=== PATIENT | female | born 1965 | race Caucasian/White ===

== ENCOUNTER → 2024-03-22 08:37 | Outpatient (REF) | payer OTHER, SELFPAY | LOC: WDC 08:37 | PROVIDERS: ATTENDING PHYSICIAN Obstetrics & Gynecology Gynecology; FAMILY PHYSICIAN Internal Medicine | DX: Z12.31 Encounter for screening mammogram for malignant neoplasm of breast (principal) | CPT/HCPCS: 77063; 77067 ==

== ENCOUNTER 2025-02-14 12:33 | Inpatient (IN) | payer OTHER, SELFPAY ==
[2025-02-14] VITALS (16 sets, daily range): BP systolic 104–127; BP diastolic 70–89; BMI 33.8; BMI 33.2
--- NOTE | 2025-02-14 08:35 | ED.GENMED ---
ED Provider Triage
<Osiel Ramires MD, Resident - Last Filed: 02/14/25 11:22>
-
Patient seen by provider in Triage?: Seen in Triage
History of Present Illness
<Osiel Ramires MD, Resident - Last Filed: 02/14/25 11:22>
General
Chief Complaint: Abdominal Symptoms
Source: patient
Exam Limitations: none
Time Seen by Provider: 02/14/25 07:57
History of Present Illness
History of Present Illness:
59 y/o F presents with dry cough, sore throat, and weakness since Thursday afternoon associated with nausea and 2 episodes of non bloody vomiting. Onset was sudden and has course has been constant. No fever, chills, weight loss, SOB, chest pain, ear
pain/fullness, nasal congestion, rhinorrhea. No recent exposure to sick contacts or recent travel. Shes on weight loss drug.
Past History
<Osiel Ramires MD, Resident - Last Filed: 02/14/25 11:22>
Past History
ED Past Medical History: Other (thigh pain, enlargement of lymph nodes)
ED Past Surgical History: None
Social History
Tobacco: Former smoker
Alcohol: Occasional
Drug: None
Personal:
Living: with family
Review of Systems
<Osiel Ramires MD, Resident - Last Filed: 02/14/25 11:22>
Review of Systems
All Other Systems: ROS reviewed and negative except as documented in HPI and ROS
Phy Exam
<Osiel Ramires MD, Resident - Last Filed: 02/14/25 11:22>
General Physical Exam
General Presentation: well appearing and no apparent distress
General Skin: warm and dry
General Mental: alert
ENT Exam
ENT Exam: EOMI and pharynx normal
Cardiovascular Exam
Cardiovascular Exam: regular rate/rhythm, no edema, no gallop, no JVD, no murmur and normal peripheral pulses
Pulmonary Exam
Pulmonary Exam: lungs clear and no respiratory distress
Gastrointestinal Exam
Gastrointestinal Exam: normal bowel sounds, non tender and soft
Neurological Exam
Neurological Exam: alert, oriented x3, no motor deficits, normal reflexs and speech normal
Musculoskeletal Exam
Musculoskeletal Exam: full ROM and no edema
Skin Exam
Skin Exam: normal color, warm/dry and no rash
Psychiatric Exam
Psychiatric Exam: normal mood/affect
Course
<Osiel Ramires MD, Resident - Last Filed: 02/14/25 11:22>
Orders/Labs/Results
Orders:
Orders
02/14/25 08:01
Ondansetron HCl [Zofran] 4 mg PO Q8HPRN PRN
02/14/25 08:02
Ketorolac [Toradol] 15 mg IV NOW STA
02/14/25 08:03
Ondansetron Injectable [Zofran] 4 mg IV Q6HPRN PRN
02/14/25 08:35
Chest [CR Chest - 2 Views ] Urgent
Comment:
Reason For Exam: chest pain
02/14/25 08:39
EKG [Electrocardiogram (*1)] Urgent
Reason for Study: Fatigue / Weakness
Ondansetron Injectable [Zofran] 4 mg IV NOW STA
02/14/25 08:40
EKG- Treatment ONCE
02/14/25 08:45
0.9% Sodium Chloride 1000 ml [Nss] 1,000 ml IV Per Protocol mls/hr
02/14/25 09:03
Add On- LAB Urgent
Tests Added?: TSH
02/14/25 09:17
Ketorolac [Toradol] 30 mg .ROUTE .ST-MED ONE
09/30/25 09:21
CBC/With Diff [Complete Blood Count/With Diff] Urgent
CMP [Comprehensive Metabolic Panel] Urgent
COVID-19 Antigen Urgent
Source: Nasal Swab
Glycohemoglobin (HgbA1c) Urgent
LDL Cholesterol, Direct Urgent
Comment: ADD ON
Lipase Urgent
TSH Urgent
Comment: ADD ON
Influenza A+B Rapid Molecular Urgent
COSTA Source: Nasal Swab
Specimen Description:
02/14/25 10:18
PTT Urgent
Prothrombin Time Urgent
Troponin I Urgent
02/14/25 10:26
Echo 2D MMode Color/Doppler Stat
Reason for Study: stemi
Heparin 1000 Units/500 ml [Heparin] 1,000 units in 500 ml .ROUTE .STK-MED
Heparin Sodium,Porcine/Ns/Pf [Heparin 2000 Units/1000 ml] 2,000 unit in 1,000 ml .ROUTE .STK-MED
Lidocaine HCl/Pf [Xylocaine-Mpf 1% Vial] 100 mg .ROUTE .STK-MED ONE
Nitroglycerin [Tridil] 1,500 mcg .ROUTE .STK-MED ONE
Verapamil Injectable [Isoptin/Verapamil Injection] 5 mg .ROUTE .STK-MED ONE
02/14/25 10:45
Ticagrelor [Brilinta] 180 mg PO ONCE ONE
02/14/25 10:48
Add On- LAB Routine
Tests Added?: Hgba1c
02/14/25 11:09
CARDIOLOGY CONSULT Routine
Consulting Provider: Anthony Kay
Was physician already notified: Yes
02/14/25 11:25
Add On- LAB Routine
Tests Added?: LDL
Admit/Transfer Patient As Directed
Co-Sign Provider:
Level of Care: Inpatient admission
Assign to:: IVU
Physician / Group: [facility]/hospitalist
Diagnosis: ACS/ COVID
Reason for Hospitalization: ACS/COVID
Expected length of stay greater than two midnights?: Yes
ELOS- Estimated Length of Stay in days: 3
I certify the patient meets the requirements for IP care: Yes
02/14/25 11:26
PRN Pain Medication Management As Directed
May give lesser potent ordered pain med per pt: Yes
preference::
Protocol:: Medication orders for pain may be administered in a
manner that supports deferring to patient preference
when the pt is:
- Requesting an ordered lesser potent pain medication.
Least to most potent pain medications are defined
as: acetaminophen < NSAID < tramadol < opioids
(morphine, oxycodone, hydromorphone).
- Requesting a lesser dose of the same medication IF
ORDERED.
- Requesting a less intrusive route of administration
if both routes are prescribed by the provider (PO <
IV).
02/14/25 11:27
Code Status As Directed
Resuscitation Status: Full Code
02/14/25 11:48
Heparin Protocol- PTT Orders As Directed
PTT per Heparin protocol: -Obtain CBC and baseline PTT - if not already collected.
-Obtain PTT 6 hours from start of infusion. Then, every 6 hours until 2 consecutive
PTT's are therapeutic. Then, PTT Daily.
-With each rate change, obtain PTT every 6 hours until 2 consecutive PTT's are
therapeutic. Then, PTT Daily.
Notify MD As Directed
Notify physician if: PTT is greater than or equal to 200.
02/14/25 12:00
Heparin 50379 Units/250 ml 25,000 units in 250 ml IV PER PROTOCOL
Weight to be used for heparin protocol in kilograms (kg):: 89.2
Protocol:: Cardiac Tx/Acute Coronary
PTT Goal Range to be used:: PTT 73 to 111 seconds
Order type:: Initial
INITIAL Infusion Dose (UNITS/KG/hr) & then follow protocol:: 12 units/kg/hr
Infusion Dose in UNITS/hr & then follow protocol (UNITS/hr):: 1,000
INFUSION RATE in mL/hr & then follow protocol (mL/hr):: 10
PTT less than or equal to 64 seconds:: Increase rate by 200 units/hr (+ 2 mL/hr)
PTT 64.1 to 72.9 seconds:: Increase rate by 100 units/hr (+ 1 mL/hr)
PTT 73 to 111 seconds:: Target Range. No change in rate.
PTT 111.1 to 130.9 seconds:: Decrease rate by 100 units/hr (- 1 mL/hr)
PTT 131 to 199.9 seconds:: HOLD for 1 hr. Then decrease rate by 200 units/hr (- 2 mL/hr)
PTT greater than or equal to 200 seconds:: HOLD for 2 hrs & Notify Provider. Then decrease by 200 units/hr (-
2 mL/hr)
Lab follow-up:: Each change, PTT q6h until 2 consecutive are therapeutic. Then PTT
daily.
02/14/25 13:00
EKG [Electrocardiogram (*1)] Routine
Reason for Study: Abnormal EKG
02/14/25 13:49
Complete Blood Count/No Diff Urgent
Comment: Obtain baseline before beginning heparin infusion if not already collected
PTT Urgent
Comment: Obtain baseline before beginning heparin infusion if not already collected
Procalcitonin Routine
If negative, will antibiotics be d/c'd or not started: Yes
Does the patient have renal or hepatic impairment?: No
Any recent (w/in 48 hrs) physiologic stress (CPR, rhabdo): No
02/14/25 18:00
Troponin I Q3H
Comment: at admit & Q3H for 3 total including ED draws, obtain ECG with each level
02/14/25 21:00
Troponin I Q3H
Comment: at admit & Q3H for 3 total including ED draws, obtain ECG with each level
02/15/25 00:00
Troponin I Q3H
Comment: at admit & Q3H for 3 total including ED draws, obtain ECG with each level
Abnormal Lab Results
02/14/25 02/14/25
09:21 10:18
WBC 14.0 H 10^3/uL
(4.8-10.8)
RDW 15.5 H %
(11.5-14.5)
Abs Immat Gran (auto) 0.1 H 10^3/uL
(0-0.05)
Absolute Neuts (auto) 12.0 H 10^3/uL
(1.4-6.5)
Absolute Lymphs (auto) 0.7 L 10^3/uL
(1.2-3.4)
Absolute Monos (auto) 1.3 H 10^3/uL
(0.1-0.6)
Neutrophils % 85.1 H %
(42.2-75.2)
Lymphocytes % 5.1 L %
(20.5-51.1)
PT 15.2 H Sec
(11.4-14.6)
Glucose 104 H mg/dl
(70-99)
AST 351 H U/L
(14-36)
ALT 53 H U/L
(0-35)
Troponin I 29.700 H* ng/ml
SARS-CoV-2 Antigen Positive A
(Negative)
02/14/25 09:21
02/14/25 09:21
Vital Signs
Initial and Last Documented VS:
Initial Vital Signs
Temp Pulse Resp BP Pulse Ox
98.6 F 52 18 104/70 97
02/14/25 07:52 02/14/25 07:52 02/14/25 07:52 02/14/25 07:52 02/14/25 07:52
Last Documented Vital Signs
Temp Pulse Resp BP Pulse Ox
97.2 F 82 16 125/76 97
02/14/25 11:15 02/14/25 14:12 02/14/25 14:12 02/14/25 14:12 02/14/25 14:12
<Gabe Up MD - Last Filed: 02/14/25 15:02>
Orders/Labs/Results
Orders:
Orders
02/14/25 08:01
Ondansetron HCl [Zofran] 4 mg PO Q8HPRN PRN
02/14/25 08:02
Ketorolac [Toradol] 15 mg IV NOW STA
02/14/25 08:03
Ondansetron Injectable [Zofran] 4 mg IV Q6HPRN PRN
02/14/25 08:35
Chest [CR Chest - 2 Views ] Urgent
Comment:
Reason For Exam: chest pain
02/14/25 08:39
EKG [Electrocardiogram (*1)] Urgent
Reason for Study: Fatigue / Weakness
Ondansetron Injectable [Zofran] 4 mg IV NOW STA
02/14/25 08:40
EKG- Treatment ONCE
02/14/25 08:45
0.9% Sodium Chloride 1000 ml [Nss] 1,000 ml IV Per Protocol mls/hr
02/14/25 09:03
Add On- LAB Urgent
Tests Added?: TSH
02/14/25 09:17
Ketorolac [Toradol] 30 mg .ROUTE .STK-MED ONE
02/14/25 09:21
CBC/With Diff [Complete Blood Count/With Diff] Urgent
CMP [Comprehensive Metabolic Panel] Urgent
COVID-19 Antigen Urgent
Source: Nasal Swab
Glycohemoglobin (HgbA1c) Urgent
LDL Cholesterol, Direct Urgent
Comment: ADD ON
Lipase Urgent
TSH Urgent
Comment: ADD ON
Influenza A+B Rapid Molecular Urgent
COSTA Source: Nasal Swab
Specimen Description:
02/14/25 10:18
PTT Urgent
Prothrombin Time Urgent
Troponin I Urgent
02/14/25 10:26
Echo 2D MMode Color/Doppler Stat
Reason for Study: stemi
Heparin 1000 Units/500 ml [Heparin] 1,000 units in 500 ml .ROUTE .STK-MED
Heparin Sodium,Porcine/Ns/Pf [Heparin 2000 Units/1000 ml] 2,000 unit in 1,000 ml .ROUTE .STK-MED
Lidocaine HCl/Pf [Xylocaine-Mpf 1% Vial] 100 mg .ROUTE .STK-MED ONE
Nitroglycerin [Tridil] 1,500 mcg .ROUTE .STK-MED ONE
Verapamil Injectable [Isoptin/Verapamil Injection] 5 mg .ROUTE .STK-MED ONE
02/14/25 10:45
Ticagrelor [Brilinta] 180 mg PO ONCE ONE
02/14/25 10:48
Add On- LAB Routine
Tests Added?: Hgba1c
02/14/25 11:09
CARDIOLOGY CONSULT Routine
Consulting Provider: Anthony Kay
Was physician already notified: Yes
02/14/25 11:25
Add On- LAB Routine
Tests Added?: LDL
Admit/Transfer Patient As Directed
Co-Sign Provider:
Level of Care: Inpatient admission
Assign to:: IVU
Physician / Group: [facility]/hospitalist
Diagnosis: ACS/ COVID
Reason for Hospitalization: ACS/COVID
Expected length of stay greater than two midnights?: Yes
ELOS- Estimated Length of Stay in days: 3
I certify the patient meets the requirements for IP care: Yes
02/14/25 11:26
PRN Pain Medication Management As Directed
May give lesser potent ordered pain med per pt: Yes
preference::
Protocol:: Medication orders for pain may be administered in a
manner that supports deferring to patient preference
when the pt is:
- Requesting an ordered lesser potent pain medication.
Least to most potent pain medications are defined
as: acetaminophen < NSAID < tramadol < opioids
(morphine, oxycodone, hydromorphone).
- Requesting a lesser dose of the same medication IF
ORDERED.
- Requesting a less intrusive route of administration
if both routes are prescribed by the provider (PO <
IV).
02/14/25 11:27
Code Status As Directed
Resuscitation Status: Full Code
02/14/25 11:48
Heparin Protocol- PTT Orders As Directed
PTT per Heparin protocol: -Obtain CBC and baseline PTT - if not already collected.
-Obtain PTT 6 hours from start of infusion. Then, every 6 hours until 2 consecutive
PTT's are therapeutic. Then, PTT Daily.
-With each rate change, obtain PTT every 6 hours until 2 consecutive PTT's are
therapeutic. Then, PTT Daily.
Notify MD As Directed
Notify physician if: PTT is greater than or equal to 200.
02/14/25 12:00
Heparin 25087 Units/250 ml 25,000 units in 250 ml IV PER PROTOCOL
Weight to be used for heparin protocol in kilograms (kg):: 89.2
Protocol:: Cardiac Tx/Acute Coronary
PTT Goal Range to be used:: PTT 73 to 111 seconds
Order type:: Initial
INITIAL Infusion Dose (UNITS/KG/hr) & then follow protocol:: 12 units/kg/hr
Infusion Dose in UNITS/hr & then follow protocol (UNITS/hr):: 1,000
INFUSION RATE in mL/hr & then follow protocol (mL/hr):: 10
PTT less than or equal to 64 seconds:: Increase rate by 200 units/hr (+ 2 mL/hr)
PTT 64.1 to 72.9 seconds:: Increase rate by 100 units/hr (+ 1 mL/hr)
PTT 73 to 111 seconds:: Target Range. No change in rate.
PTT 111.1 to 130.9 seconds:: Decrease rate by 100 units/hr (- 1 mL/hr)
PTT 131 to 199.9 seconds:: HOLD for 1 hr. Then decrease rate by 200 units/hr (- 2 mL/hr)
PTT greater than or equal to 200 seconds:: HOLD for 2 hrs & Notify Provider. Then decrease by 200 units/hr (-
2 mL/hr)
Lab follow-up:: Each change, PTT q6h until 2 consecutive are therapeutic. Then PTT
daily.
02/14/25 13:00
EKG [Electrocardiogram (*1)] Routine
Reason for Study: Abnormal EKG
02/14/25 13:49
Complete Blood Count/No Diff Urgent
Comment: Obtain baseline before beginning heparin infusion if not already collected
PTT Urgent
Comment: Obtain baseline before beginning heparin infusion if not already collected
Procalcitonin Routine
If negative, will antibiotics be d/c'd or not started: Yes
Does the patient have renal or hepatic impairment?: No
Any recent (w/in 48 hrs) physiologic stress (CPR, rhabdo): No
02/14/25 18:00
Troponin I Q3H
Comment: at admit & Q3H for 3 total including ED draws, obtain ECG with each level
02/14/25 21:00
Troponin I Q3H
Comment: at admit & Q3H for 3 total including ED draws, obtain ECG with each level
02/15/25 00:00
Troponin I Q3H
Comment: at admit & Q3H for 3 total including ED draws, obtain ECG with each level
Abnormal Lab Results
02/14/25 02/14/25
09:21 10:18
WBC 14.0 H 10^3/uL
(4.8-10.8)
RDW 15.5 H %
(11.5-14.5)
Abs Immat Gran (auto) 0.1 H 10^3/uL
(0-0.05)
Absolute Neuts (auto) 12.0 H 10^3/uL
(1.4-6.5)
Absolute Lymphs (auto) 0.7 L 10^3/uL
(1.2-3.4)
Absolute Monos (auto) 1.3 H 10^3/uL
(0.1-0.6)
Neutrophils % 85.1 H %
(42.2-75.2)
Lymphocytes % 5.1 L %
(20.5-51.1)
PT 15.2 H Sec
(11.4-14.6)
Glucose 104 H mg/dl
(70-99)
AST 351 H U/L
(14-36)
ALT 53 H U/L
(0-35)
Troponin I 29.700 H* ng/ml
SARS-CoV-2 Antigen Positive A
(Negative)
02/14/25 09:21
02/14/25 09:21
Vital Signs
Initial and Last Documented VS:
Initial Vital Signs
Temp Pulse Resp BP Pulse Ox
98.6 F 52 18 104/70 97
02/14/25 07:52 02/14/25 07:52 02/14/25 07:52 02/14/25 07:52 02/14/25 07:52
Last Documented Vital Signs
Temp Pulse Resp BP Pulse Ox
97.2 F 82 16 125/76 97
02/14/25 11:15 02/14/25 14:12 02/14/25 14:12 02/14/25 14:12 02/14/25 14:12
<Osiel Ramires MD, Resident - Last Filed: 02/14/25 11:22>
MDM/Problems Addressed
Differential Diagnosis Includes:
Viral URI, COVID, strep pharyngitis, GERD
MDM/Problems Addressed:
59 y/o F with dry cough, sore throat, weakness since Thursday morning associated with nausea and vomiting. Physical exam benign, vitals stable afebrile.
- EKG showed STEMI in leads 2,3,AVF with T wave inversion and large q waves , troponins are 29
- Chest xray normal
- CMP shows elevated LFT's, CBC is unremarkable , TSH
- Administered fluids
- rapid covid positive
- flu pending
- Cardiology consulted, aspirin/ heparin drip/ cardiology wants Brilinta started and patient will go to labor delivery specialist but not as a STEMI. Will admit patient to ED hospitalist service.
<Osiel Ramires MD, Resident - Last Filed: 02/14/25 11:22>
*Pulse Oximetry
SaO2: 97
Oxygen Mode of Delivery: Room air
Patient hypoxic: no
*Critical Care Note
Total Time (30-74mins, 75-104mins- exclusive of procedures): Not Applicable
<Gabe Up MD - Last Filed: 02/14/25 15:02>
Update Note
Update Note:
1005.. EKG shows a ST elevation inferiorly with T wave inversions and large Q waves. Suspect most include bleed and AZ. EKG sent to cardiology and invasive cardiology. They did asked to call a STEMI alert.
ED Attending Note
<Osiel Ramires MD, Resident - Last Filed: 02/14/25 11:22>
-
Portions of this chart may have been created with voice recognition software.� Occasional wrong word or��sound alike� substitutions may have occurred due to the inherent limitations of voice recognition software.
<Gabe Up MD - Last Filed: 02/14/25 15:02>
ED Attending Note
Patient seen and examined by attending physician: Yes
I performed a history and physical exam of patient and discussed management with resident, I reviewed resident's note and agree with documented findings and plan of care.: Yes
ED Attending Note:
Patient complaining of dry cough some sore throat general fatigue and weakness and recurrent nausea and vomiting. Has been going on for 3 to 4 days. Some subjective fever but no objective fever. Some chills. She some myalgias. No chest pain
shortness of breath no abdominal pain no urinary symptoms. No unusual travel history. No one else is ill at home.
On exam patient is nontoxic in no distress. She does appear generally weak and washed out however. Neck is supple. No respiratory distress. Lungs are clear and equal. Heart regular rate and rhythm no murmur. Abdomen is nontender. No rebound
or guarding no mass or hernia. Warm and dry. Perfusing well. Extremities are unremarkable.
Impression is general fatigue weakness with some myalgias chills. Most supportive of a infectious issue likely viral. Highly doubt cardiac. Will get an EKG for completeness. She has no acute abdomen. She is nontender. No indication for
radiologic testing of the abdomen or pelvis. With a dry cough we will get a chest x-ray. Check electrolytes for any potassium or sodium abnormality. Check LFTs and lipase. She is on a weight loss drug. No indication for urinalysis. Fluids
nausea meds
EKG showed ST elevation inferiorly with T wave inversions and significant Q waves. Appears to show a AZ, subacute nature starting likely Thursday night, 2-1/2 days ago. Patient is clinically stable. COVID-positive. They will have the patient go to
[facility] today. But not as a STEMI. Aspirin heparin ordered initially. Cardiology does want Brilinta.
Crit care=45 minutes thank you very much right yeah just do it all
Discharge Plan
Departure
Patient Disposition: Admit
Date of Disposition: 02/14/25
Time of Disposition: 10:11
Presentation/result/management discussed w/ accepting MD/DO: Hospitalist
Condition: Fair
Covid-19: Confirmed COVID-19
Discharge Problem:
ST elevation AZ (STEMI), COVID infection
Interventions
Interventions:
*Risk Screen - Suicide Last Done: 02/14/25 07:52
*General Assessment Last Done: 02/14/25 07:52
*Neglect/Abuse Screening Last Done: 02/14/25 14:12
*ED- Fall Risk Assessment Last Done: 02/14/25 14:12
*ED COVID-19 Vaccine History Last Done: 02/14/25 14:12
*ED Influenza Vaccine History Last Done: 02/14/25 14:12
*Nursing Disposition Last Done: 02/14/25 14:12
KV-Uhfqvn-Jpsevqirem Assessment Last Done: 02/14/25 09:39
[2025-02-14] MEDS: NSS 1000 IV (09:33)
[2025-02-14] MEDS: ZOFRAN 4 MG IV (09:34)
[2025-02-14 10:07] LABS: Hematocrit 42.5 % (37.0-47.0); Hemoglobin 14.3 g/dL (12.0-16.0); Mean Corp Hgb Conc. 33.6 g/dL (33.0-37.0); Mean Corpuscular Volume 84.3 fL (81.0-99.0); Nucleated Red Blood Cells % 0 %; Platelet Count 300 10^3/uL (130-400); Red Cell Dist. Width 15.5 % (11.5-14.5)
[2025-02-14 10:10] LABS: ALT (SGPT) 53 U/L (0-35); AST (SGOT) 351 U/L (14-36); Albumin 4.2 g/dl (3.5-5.0); Alkaline Phosphatase 65 U/L (38-126); Blood Urea Nitrogen 16 mg/dl (7-17); Calcium 9.2 mg/dl (8.4-10.2); Carbon Dioxide 24 mmol/L (22-30); Chloride 107 mmol/L (98-107); Glucose 104 mg/dl (70-99); Lipase 77 U/L (23-300); Potassium 4.5 mmol/L (3.5-5.1); Sodium 139 mmol/L (135-145); Total Protein 7.5 g/dl (6.3-8.2); eGFR > 60.00
[2025-02-14 10:20] LABS: COVID-19 Antigen Positive (Negative)
--- NOTE | 2025-02-14 10:27 | EDRN ---
see ACS record for heparin and asa administration.
[2025-02-14 10:44] LABS: TSH 0.58 uIU/ml (0.47-4.68)
--- NOTE | 2025-02-14 10:48 | CON.CAR ---
Consultation
Consultation Request
Date/Time Consultation Requested: 02/14/2025 10:00
Date/Time Consultation Performed: 02/14/2025 10:10
Requesting Provider: Dr. Up
Performing Provider: KATHY Robert for Dr. Kay
Reason for Consultation: STEMI
Medical History
-
Chief Complaint: Weakness
History of Present Illness:
Paloma Harvey is a 59 year old female with obesity, former smoking, and no other significant past medical history who presented with weakness. She endorses associated fatigue, dry cough and sore throat. She had two episodes of vomiting this
weekend. She denies fever and chills. She does recall having significant shoulder pain this weekend. She is not having any chest pain at present. She is not short of breath. She is not having active shoulder pain. An EKG was ordered by the ER.
EKG with inferior ST elevation and Q waves. She was also found to be positive for COVID-19.
Past Medical History
Past Medical History: Other (obesity)
Past Surgical History: Other (Lymph node biopsy)
Social History
Tobacco: Former Smoker
Alcohol: None
Drug: None
Personal:
Family History
Family History: Reviewed & Not Pertinent
Allergies / Home Medications
Allergy/AdvReac Type Severity Reaction Status Date / Time
itraconazole (From Sporanox) Allergy Unknown SWELLING Verified 02/14/25 07:54
OF FINGERS
�Medication �Instructions �Recorded �Confirmed �Type
ginkgo biloba leaf extract 120 1 tab PO DAILY 02/14/25 02/14/25 History
mg-choline bitartrate 110 mg
tablet (100du.tv Memory Support)
omega 3-vtp-xnk-fish oil 1,000 mg 1 cap PO DAILY 02/14/25 02/14/25 History
(120 mg-180 mg) capsule (Fish Oil)
thiamine 12 mg-vit B6 17 mg-vit 1 tab PO DAILY 02/14/25 02/14/25 History
B12 24 mcg-ALA 300 mg tablet
(Nerve Health)
tirzepatide (weight loss) 5 mg/0.5 5 mg SC NELSON@1900 02/14/25 02/14/25 History
mL subcutaneous pen injector
(Zepbound)
Review of Systems
-
All other systems: Negative unless noted
Constitutional: Fatigue
EENT: No Symptoms
Respiratory: Cough
Cardiac: No Symptoms
Abdomen/GI: No Symptoms
: No Symptoms
Musculoskeletal: No Symptoms
Skin: No Symptoms
Neurological: No Symptoms
Endocrine: No Symptoms
Hematologic/Lymphatic: No Symptoms
Physical Exam
Vital Signs
Temp Pulse Resp BP Pulse Ox
98.6 F 78 16 127/75 98
02/14/25 07:52 02/14/25 10:19 02/14/25 10:19 02/14/25 10:19 02/14/25 10:19
Lab Results
02/14/25 09:21
02/14/25 09:21
Physical Exam
General: Well Developed, Well Nourished, No Apparent Distress and Comfortable
HEENT: Normocephalic, Anicteric and Moist Mucous Membranes
Respiratory: Clear and Non Labored Respirations
Cardiac: S1/S2 and Regular Rhythm; Negative Peripheral Edema
Breast: Deferred by me
GI: Soft, Non Tender, Non Distended and Normal Bowel Sounds
Rectal: Deferred by Provider
Genito-urinary: No Costovertebral Tender
Musculoskeletal: No Clubbing, No Cyanosis and No Edema
Skin: Warm and Dry
Neuro: AO x 3
Hematologic/Lymphatic: No Lymphadenopathy
Psych: Calm
Impression / Plan
-
I/P: 59F with obesity, former smoking, and no other significant past medical history who presented with weakness. EKG showed inferior STEMI.
STEMI, inferior
- Inferior ST elevation with Q waves
- ASA 324mg chew & start heparin gtt
- Bedside TTE with inferior hypokinesis - full study ordered
- Troponin pending
- Hgba1c pending, fasting lipid panel in am
- Cardiac cancerization per interventional cardiology
Covid-19, acute, per primary service
Obesity, BMI 33, on GLP1
Data Reviewed
-
EKG: Report Reviewed by me (As above)
Labs: Labs Reviewed by me
Old Records: Reviewed
[2025-02-14 10:59] LABS: Troponin I 29.700 ng/ml
[2025-02-14] MEDS: BRILINTA 180 MG PO (11:07)
--- NOTE | 2025-02-14 11:07 | HPS.HSE ---
Family Physician
-
Family Physician: Will Edgar
Chief Complaint
-
sore throat, weakness, nausea/vomiting
History of Present Illness
HPI: 59 y/o F without significant past medical history, presented with dry cough, sore throat, weakness, nausea and vomiting, ongoing for 2 days.
She denied to fever, chills, SOB, chest pain, etc.
No recent sick contact exposure or travel.
Medical History
Past Medical History
Past Medical History: Reports None
Past Surgical History: Reports Other
Additional Past Surgical History:
Lymph node removal 2009, ruled out cancer at that time
Social History
Tobacco: Non-smoker
Alcohol: None
Personal:
Living: With Family
Family History
Family History: Not pertinent
Allergies / Home Medications
Allergies reflects when Allergies were last updated in [facility].
Home Medications with original date entered in [facility]
Allergy/Medication List:
Allergies
Allergy/AdvReac Type Severity Reaction Status Date / Time
itraconazole (From Sporanox) Allergy Unknown SWELLING Verified 02/14/25 07:54
OF FINGERS
Home Medications
ginkgo biloba leaf extract 120 mg-choline bitartrate 110 mg tablet ([employer] Memory Support) 1 tab PO DAILY 02/14/25
omega 5-yzv-rqx-fish oil 1,000 mg (120 mg-180 mg) capsule (Fish Oil) 1 cap PO DAILY 02/14/25
thiamine 12 mg-vit B6 17 mg-vit B12 24 mcg-ALA 300 mg tablet (MetaMed) 1 tab PO DAILY 02/14/25
tirzepatide (weight loss) 5 mg/0.5 mL subcutaneous pen injector (Zepbound) 5 mg SC NELSON@1900 02/14/25
Review of Systems
-
EENT: Reports See HPI and Sore Throat
Respiratory: Denies Trouble Breathing
Cardiac: Denies Chest Pain or Palpitations
Physical Exam
Vital Signs
Vital Signs
Temp Pulse Resp BP Pulse Ox
37.0 C 78 16 127/75 98
02/14/25 07:52 02/14/25 10:19 02/14/25 10:19 02/14/25 10:19 02/14/25 10:19
Physical Exam
General: Well Developed, Well Nourished, No Apparent Distress, Comfortable and Conversant
HEENT: NormoCephalic, Moist mucous membranes and Atraumatic; No Oxygen
Respiratory: Clear and Non Labored Respirations; No Accessory Resp Muscle Use
Cardiac: S1/S2 and Regular Rhythm; No Murmur or Rub
GI: Soft, Non Tender, Non Distended and Normal Bowel Sounds; No Organomegaly
Rectal: Deferred by Provider
Musculoskeletal: No Clubbing, No Cyanosis and No Edema
Skin: No Rash
Neuro: Awake and Alert
Psych: Calm and Intact Judgment/Insight
Laboratory Results
-
02/14/25 09:21
02/14/25 09:21
Laboratory Results
Total Bilirubin 0.6 mg/dl (0.2-1.3) 02/14/25 09:21
AST 351 U/L (14-36) H 02/14/25 09:21
ALT 53 U/L (0-35) H 02/14/25 09:21
Alkaline Phosphatase 65 U/L (38-126) 02/14/25 09:21
Troponin I 29.700 ng/ml H* 02/14/25 10:18
Lipase 77 U/L (23-300) 02/14/25 09:21
Data Reviewed
-
Lab Data: Labs Reviewed by me, Discussed with Patient and Discussed with Family
Impression/Plan
-
HPI: 59 y/o F without significant past medical history, presented with dry cough, sore throat, weakness, nausea and vomiting, ongoing for 2 days.
She denied to fever, chills, SOB, chest pain, etc.
No recent sick contact exposure or travel.
A/P:
# Elevated troponin, suspect NSTEMI
Admission troponin at 29.7, continue to follow to peak/plateau
Cardiac cath per cardiology
Heparin drip, ASA
Follow echo
Check LDL
# COVID infection, without hypoxia
COVID-positive, flu negative on admission
Check procalcitonin
Chest x-ray NAD
Continue COVID isolation protocol
# Elevated LFT, possibly reactive
Continue to trend for now
# Leukocytosis, suspect reactive
Continue to monitor
# Obesity, BMI 33
Patient on Zepbound outpatient
DVT ppx: to start heparin drip
FC
[2025-02-14 11:17] LABS: INR 1.17; PT 15.2 Sec (11.4-14.6)
[2025-02-14 11:21] LABS: APTT 29.5 Sec (23.4-35.0)
--- NOTE | 2025-02-14 11:40 | EDCM ---
CM reviewed chart and met with pt bedside in ED. Lives with her and son in 2 story home, 2 [address], first floor half bath, full flight to second floor bedroom and full bath.
Independent in ADLs, personal care and ambulation at baseline, no assistive devices. No DME in home.
Confirms prescription coverage.
No hx VN or SNF
PCP: Will Edgar
Pharmacy: [facility]
Anticipate discharge home, no needs. CM will continue to follow for any discharge planning needs.
[2025-02-14 12:10] LABS: LDL Cholesterol, Direct 103 mg/dl
[2025-02-14] MEDS: HEPARIN 25000 UNITS/250 ML IV (12:57)
[2025-02-14 13:54] LABS: Glycohemoglobin (HgbA1c) 5.3 % (4.0-5.6)
[2025-02-14 14:20] LABS: Hematocrit 40.0 % (37.0-47.0); Hemoglobin 13.5 g/dL (12.0-16.0); Mean Corp Hgb Conc. 33.8 g/dL (33.0-37.0); Mean Corpuscular Volume 85.1 fL (81.0-99.0); Platelet Count 280 10^3/uL (130-400); Red Cell Dist. Width 15.4 % (11.5-14.5)
[2025-02-14 14:30] LABS: APTT 40.4 Sec (23.4-35.0)
[2025-02-14 14:51] LABS: Procalcitonin < 0.05 ng/ml (0.0-0.25)
[2025-02-14 15:07] LABS: Troponin I 44.000 ng/ml
[2025-02-14 16:06] LABS: ACT-LR - POC 237 Seconds (116-155)
[2025-02-14 16:29] LABS: ACT-LR - POC 166 Seconds (116-155)
[2025-02-14 16:41] LABS: ACT-LR - POC 221 Seconds (116-155)
--- NOTE | 2025-02-14 16:58 | ITS.CL.CATH ---
[facility] [employer] Technician - Catheterization
Cardiac Catheterization
Procedure Report:
LEFT HEART CATHETERIZATION
Date of Procedure: February 14, 2025
Referring: Anthony Kay MD
PROCEDURES:
1. Left heart catheterization, coronary angiogram.
2. Moderate sedation.
3. Mechanical aspiration thrombectomy using penumbra CATRx
4. Successful percutaneous coronary artery intervention of a 99% highly thrombotic mid RCA stenosis (lesion type C, CARMINE I flow) with 2 overlapping 4.0 x 22 and 4.0 x 12 mm Medtronic [place] frontier drug-eluting stent, postdilated using IVUS guidance
with a 4.0 mm NC balloon at high pressures with an excellent angiographic and IVUS based result.
5. Intravascular ultrasound (IVUS).
6. Right heart catheterization.
INDICATION: Paloma is a 59-year-old female with prior history of hyperlipidemia, prediabetes, morbid obesity on [facility] since September with successful loss of about 60 pounds who started having a dry cough with a sore throat on February 12, 2025
associated with significant fatigue progressing to have some nausea and given persistent symptoms she presented to the emergency room on Friday, February 14, 2025. In the emergency room she was found to have high risk EKG changes with significant
ST deviation and deep inferior Q waves. Though patient never complained of any chest pain she had ongoing nausea and abdominal discomfort which is likely her anginal equivalent with some arm discomfort about 14 hours prior. Stat bedside
echocardiogram was performed which showed inferior and inferolateral hypo to akinesis with overall preserved LVEF and no significant valvular abnormalities. In the setting we also found out that she had tested positive for COVID. Decision was made
to initiate medical therapy for acute coronary syndrome and take patient for heart catheterization after reviewing risk and benefits in significant detail.
ACCESS: Right radial artery, 6Fr. sheath, under US guidance.
HEMODYNAMICS : (mmHg)
RA (m) : 13
RV (s/d,m) : 32/11, 16
PA (s/d, m) : 29/19, 23
PCWP (m) : 23
PA saturation: 68.5% on room air
AO saturation: 94.7% on room air
RA saturation: 70.3% on room air
Cardiac Output : 5.37 L/min by Wendy calculation
Cardiac Index : 2.76 L/min/m-2 by Wendy calculation
Systemic vascular resistance: 1205 dsc^(-5)
AO (s/d) : 107/68
LVEDP : 16
No significant gradient across the aortic valve to suggest aortic stenosis.
CORONARY FINDINGS
Dominance: Right
Left Main Trunk (LMT): Large caliber vessel that gives rise to the LAD and LCx branches and is free of angiographic disease.
Left Anterior Descending Artery (LAD): Large caliber vessel that gives off 1 major diagonal branches as it courses along the anterior inter-ventricular groove before wrapping around the cardiac apex. Moderately tortuous. There is mild diffuse
atherosclerotic plaque.
Left Circumflex Artery (LCx): Large caliber vessel that gives off 1 major obtuse marginal (OM) branches as it courses along the atrio-ventricular (AV) groove. Moderate to severe tortuosity with a eccentric 50% stenosis in the mid circumflex distal
to OM1 takeoff.
Right Coronary Artery (RCA): Large caliber dominant vessel that gives rise to the posterior descending artery (RPDA) and postero-lateral ventricular (RPLV) branches distally. Mid RCA has a 99% highly thrombotic stenosis with CARMINE I flow which was
intervened upon as noted below given the culprit of presenting ACS.
CORONARY INTERVENTION: Given high risk EKG findings with rising troponin decision was made to proceed with intervention to the mid RCA lesion after discussion with senior first aid officer, Dr. Edgar Vogel. The right coronary artery was
selectively engaged using a 6 Khmer JR4 guide catheter. A 190 cm 0.014 run-through wire was carefully navigated into the distal vessel across the mid RCA highly thrombotic stenosis. We initially ballooned using multiple inflations with a 2.5 x
15 mm semicompliant balloon with full expansion but significant degree of organized thrombus still present. At this point we decided to proceed with aspiration thrombectomy using a penGoYoDeora CAT Rx catheter doing well and slow pullback with the
guide deeply engaged to minimize risk for any thrombus embolization with successful removal of thrombus and improvement in flow distally. The lesions were subsequently stented using 2 overlapping 4.0 x 22 and 4.0 x 12 mm Medtronic [place] frontier
drug-eluting stents, postdilated using a 4.0 mm NC balloon at high pressures based on IVUS guidance with an excellent angiographic and IVUS based result without evidence of distal or proximal stent edge dissections and a well-expanded and well
apposed stent. Patient had already received 180 mg of Brilinta in the emergency room. She tolerated the procedure well with no acute complications.
SEDATION: 67 minutes of procedural sedation was utilized. IV Midazolam and IV Fentanyl were administered. An independent medical examiner was present to assist with and help manage the patient's level of consciousness and physiologic status.
RADIATION SUMMARY: Fluoro Time (min): 18.7, Dose (mGy): 1017.99, DAP (Gy.cm2) : 69.8
Closure Device: There were no immediate intra-procedural complications. The sheath was pulled in the laboratory asst and a vascular-band applied to the right wrist for radial artery hemostasis using the patent hemostasis technique.
CONCLUSIONS
1. Successful percutaneous coronary artery intervention of a 99% highly thrombotic mid RCA stenosis (lesion type C, CARMINE I flow) with 2 overlapping 4.0 x 22 and 4.0 x 12 mm Medtronic [place] frontier drug-eluting stent, postdilated using IVUS guidance
with a 4.0 mm NC balloon at high pressures with an excellent angiographic and IVUS based result.
2. Elevated right and left-sided filling pressures with normal cardiac output.
RECOMMENDATIONS
1. Wean radial band per protocol. Monitor right hand perfusion and for bleeding from the radial site following removal of the vascular-band following trans-radial access.
2. Continue aggressive medical therapy and risk factor modification for secondary CAD prevention.
3. Continue ASA 81 mg daily for life.
4. Continue Brilinta for at least 12 months of uninterrupted dual anti-platelet therapy given drug-eluting stent (PINA) implantation to mitigate the risk of stent thrombosis. This is not to be stopped for any reason without the guidance of a
service center representative.
5. Hydrate with normal saline to mitigate the risk of contrast-induced acute kidney injury.
6. Referral for outpatient cardiac rehab.
Copy to: Anthony Kay MD
Abril Jc MD, [facility], [facility]
[2025-02-14] MEDS: NSS 500 IV (17:12)
[2025-02-14 18:06] LABS: ACT-LR - POC 174 Seconds (116-155)
[2025-02-14 18:34] LABS: ACT-LR - POC 158 Seconds (116-155)
--- NOTE | 2025-02-14 19:00 | PTCARENOTE ---
~[id number]: Patient arrived from [facility]. Pt covid +, PPE precautions followed. Pt AOx4, NSR 80s-90s, SBP 110s, RA satting 95%. Pt does not c/o pain at this time. R radial TR band in place, air removed at 1845 per order. R fem sheath in place, post-op
IVF infusing. Pt bedrest flat at this time. Denies pain at this time. at bedside. Admission questions completed and patient oriented to room and call danielle system. Around 1800, ACT completed for sheath which resulted 174, Message sent to
[facility] to see if could pull sheath at this time, no response received. Around 1830, rechecked ACT which was <170, Sheath pulled per protocol, pressure held and dressing applied. No sign of bleeding or hematoma at this time, dressing CDI. All needs
met at this time, call danielle within reach. Handoff report given to nightshift RN.
[2025-02-14 19:04] LABS: Troponin I 90.300 ng/ml
[2025-02-14] MEDS: LOPRESSOR 12.5 MG PO (20:13)
[2025-02-14] MEDS: TYLENOL 650 MG PO (22:22)
[2025-02-14 22:47] LABS: APTT 30.6 Sec (23.4-35.0)
[2025-02-14 23:05] LABS: Troponin I 69.400 ng/ml
--- NOTE | 2025-02-14 23:37 | PTCARENOTE ---
Rec'd pt at change of shift. Pt AAO*3, VSS, and SR-Stach on monitor (110's with activity). R femoral vein with dressing CDI. Pt reported lower back pain and given PRN tylenol as ordered. Pt reported nausea with saline flushes to IV sites, then
reports relief one minute after. Pt agreed to activity restrictions. R radial external pressure device weaned off per protocol. Pt now with dressing CDI at r radial site and R femoral site. Pt resting with call danielle in reach. See MAR and
flowchart for full pt care and assessment.
[2025-02-15] VITALS (7 sets, daily range): BP systolic 93–129; BP diastolic 64–81; BMI 33.4
[2025-02-15 05:01] LABS: Hematocrit 36.2 % (37.0-47.0); Hemoglobin 12.4 g/dL (12.0-16.0); Mean Corp Hgb Conc. 34.3 g/dL (33.0-37.0); Mean Corpuscular Volume 86.0 fL (81.0-99.0); Platelet Count 232 10^3/uL (130-400); Red Cell Dist. Width 15.4 % (11.5-14.5)
[2025-02-15 05:26] LABS: ALT (SGPT) 58 U/L (0-35); AST (SGOT) 313 U/L (14-36); Albumin 3.4 g/dl (3.5-5.0); Alkaline Phosphatase 51 U/L (38-126); Blood Urea Nitrogen 15 mg/dl (7-17); Calcium 8.4 mg/dl (8.4-10.2); Carbon Dioxide 25 mmol/L (22-30); Chloride 107 mmol/L (98-107); Estimated Creatinine Clearance 107 ml/min; Glucose 86 mg/dl (70-99); HDL Cholesterol 44 mg/dl; LDL Cholesterol, Calculated 84 mg/dl; Potassium 4.2 mmol/L (3.5-5.1); Sodium 137 mmol/L (135-145); Total Protein 6.3 g/dl (6.3-8.2); Very Low Density Lipoprotein 17 mg/dl (0-30); eGFR > 60.00
[2025-02-15 05:40] LABS: Troponin I 41.200 ng/ml
--- NOTE | 2025-02-15 08:05 | W.PN.HOSP.TC ---
Today's Communication/Plan
-
check echo
Cont DAPT ASA and Brilinta
CM to check cost of Brilinta
Possible DC today if pt also cleared by Card
Assessment / Plan
Assessment / Plan
HPI: 59 y/o F without significant past medical history, presented with dry cough, sore throat, weakness, nausea and vomiting, ongoing for 2 days.
She denied to fever, chills, SOB, chest pain, etc.
No recent sick contact exposure or travel.
A/P:
# Elevated troponin due to NSTEMI
troponin peaked to 90, then trended down to 41
s/p Cardiac cath 02/14: Successful PCI of mid RCA stenosis with 2 overlapping stents,
Cont DAPT ASA and Brilinta
CM to check cost of Brilinta
Follow echo
LDL at 84, would avoid statin currently in setting of elevated LFT
# COVID infection, without hypoxia
COVID-positive, flu negative
procalcitonin negative, Chest x-ray NAD
Continue COVID isolation protocol
# Elevated LFT, possibly reactive
Continue to trend
# Leukocytosis, suspect reactive and due to COVID
Continue to monitor
# Obesity, BMI 33
Patient on Zepbound outpatient
DVT ppx: Lovenox SQ
FC
DW RN
Anticipated Discharge: Today
Subjective/Interval History
-
Date of Service: February 15, 2025
Objective Data
-
Labs:
Laboratory Results
02/14/25 02/15/25
22:21 04:22
WBC 11.1 H
Hgb 12.4
Hct 36.2 L
Plt Count 232
APTT 30.6
Sodium 137
Potassium 4.2
Chloride 107
Carbon Dioxide 25
BUN 15
Creatinine 0.6
Glucose 86
Calcium 8.4
Total Bilirubin 0.6
AST 313 H
ALT 58 H
Alkaline Phosphatase 51
Vital Signs:
Vital Signs
Temp Pulse Resp BP Pulse Ox
37.2 C 79 16 99/75 98
02/15/25 04:07 02/15/25 06:00 02/15/25 04:07 02/15/25 04:07 02/15/25 04:07
I&O
02/14/25 02/15/25 02/16/25
06:59 06:59 06:59
Intake Total 480 / 480
Balance 480 / 480
Review of Systems
-
History Source: Patient
Respiratory: Reports Cough (mild)
Physical Exam
-
General: Well Developed, Well Nourished, No Apparent Distress, Comfortable and Conversant; Negative Respiratory Distress
HEENT: Normocephalic, Atraumatic, Nose Appears Normal and Ears Appear Normal; Negative Oxygen
Respiratory: Clear to Auscultation and Non Labored Respirations; Negative Accessory Resp Muscle Use
Cardiac: Regular Rhythm and S1/S2
GI: Soft, Nontender, Nondistended and Normal Bowel Sounds
Skin: Warm and Dry
Neuro: Awake, Alert, Oriented and AO x 3
Psych: Calm and Intact Judgement/Insight
Data Reviewed
-
Diagnostic Radiology: Report Reviewed by me
Labs: Labs Reviewed by me
[2025-02-15] MEDS: LOW STRENGTH ASPIRIN 81 MG PO (08:52)
[2025-02-15] MEDS: LOPRESSOR 12.5 MG PO ×2 (08:52→20:03)
[2025-02-15] MEDS: BRILINTA 90 MG PO ×2 (09:12→20:03)
--- NOTE | 2025-02-15 09:46 | CM ---
Pricing on Brilinta and Ticagrelor through the patient's prescription plan is $30 for a 30 day supply. The discharge plan has ticagrelor and it is in stock at the patient's [facility] pharmacy
--- NOTE | 2025-02-15 10:43 | W.PN.CD ---
Addendum entered and electronically signed by Larry Otto MD 02/15/25 14:17:
Patient evaluated in collaboration with DIRECTOR OF GROUP COUNSELING PROGRAM; agree with below.
- Patient with overlapping PINA x2 to RCA yesterday.
- Continue telemetry monitoring for 1 more day; patient is COVID-positive.
- Continue aspirin/Brilinta.
Original Note:
Today's Communication / Plan
-
Continue ASA and Brilinta
Continue metoprolol
Needs to stay another night for monitoring post [place]- discussed with patient and nursing. Follow telemetry and BP's.
Impression / Plan
-
I/P: 59F with obesity, former smoking, and no other significant past medical history who presented with weakness and ruled in for [place].
NSTEMI/CAD:
-we discussed with interventional cardiology and did not meet criteria for STEMI, as was noted yesterday
-peak trop 90
-cardiac cath 02/14/25: Successful percutaneous coronary artery intervention of a 99% highly thrombotic mid RCA stenosis (lesion type C, CARMINE I flow) with 2 overlapping 4.0 x 22 and 4.0 x 12 mm Medtronic [place] frontier drug-eluting stent, postdilated
using IVUS guidance with a 4.0 mm NC balloon at high pressures with an excellent angiographic and IVUS based result. Elevated right and left-sided filling pressures with normal cardiac output.
-Continue ASA and Brilinta and we discussed the importance of these medications
-not on statin due to LFT's being abnormal- monitor for timing of initiation as these improve
-continue BB. Will not add ACEI/ARB yet since BP's on low end
-needs another 24 hours monitoring s/p [place]
-she is feeling well and cath site is stable. Eating and ambulating without difficulty.
Covid-19, acute, per primary service
Obesity, BMI 33, on GLP1
Physical Exam
Vital Signs/Labs
Vital Signs
Temp Pulse Resp BP Pulse Ox
98.7 F 83 16 112/74 97
02/15/25 08:28 02/15/25 08:52 02/15/25 08:28 02/15/25 08:52 02/15/25 08:28
02/14/25 02/15/25 02/16/25
06:59 06:59 06:59
Actual Weight 88.2 kg
02/15/25 04:22
02/15/25 04:22
PT 15.2 Sec (11.4-14.6) H 02/14/25 10:18
INR 1.17 02/14/25 10:18
APTT 30.6 Sec (23.4-35.0) 02/14/25 22:21
Triglycerides 85 mg/dl (10-149) 02/15/25 04:22
LDL Cholesterol, Calc 84 mg/dl 02/15/25 04:22
VLDL Cholesterol, Calc 17 mg/dl (0-30) 02/15/25 04:22
HDL Cholesterol 44 mg/dl 02/15/25 04:22
TSH 0.58 uIU/ml (0.47-4.68) 02/14/25 09:21
LAB Results
02/14/25 02/14/25 02/14/25
10:18 13:00 13:49
Troponin I 29.700 H* Cancelled 44.000 H* D
02/14/25 02/14/25 02/15/25
18:04 22:21 00:00
Troponin I 90.300 H* D 69.400 H* Cancelled
02/15/25
04:22
Troponin I 41.200 H* D
Physical Exam
Constitutional: No acute distress
EENT: Anicteric
Cardiovascular: Rhythm & rate is regular
Respiratory: Respiratory effort normal and Lungs clear to auscul.
Neuro/Psych: AO x 3
Other: Cath Site (right radial site stable no hematoma)
Data Reviewed
-
Date of Service: February 15, 2025
EKG: Tracing Personally Visualized and interpreted (SR with evidence for inferior infarct) and Other (SR)
Labs: Labs Reviewed by me
--- NOTE | 2025-02-15 12:00 | CM ---
Chart reviewed. Patient is independent of ADLS, lives with her and son in a 2 STH, 1-2 KRISTINA, 0 DME. Plan is for the patient to return home. CM to follow
--- NOTE | 2025-02-15 13:01 | PTCARENOTE ---
Assumed care of the pt @ 0700. Pt is AAOx3 SR on the monitor denies cp. VSS Rt radial and rt fem cath sites c/d/i. POC discussed with pt. Pt ambulates without assistance in the room. Call danielle within reach.
[2025-02-15] MEDS: LOVENOX 40 MG SC (18:30)
[2025-02-15] MEDS: TYLENOL 650 MG PO (19:16)
--- NOTE | 2025-02-15 21:13 | PTCARENOTE ---
Patient received at change of shift resting in the bed. Sinus rhythm on telemetry. Oxygen saturation 99% on RA. The patient denies chest pain or pressure. Right radial and right groin site C/D/I, radial and pedal pulses palpable, no evidence of
hematoma. The patient is anxious to be discharged but otherwise offers no complaints. Plan of care discussed. Call danielle within reach. Care ongoing.
[2025-02-16 03:00] VITALS: BMI 33.0
[2025-02-16 03:11] VITALS: BP 108/76
[2025-02-16] MEDS: TYLENOL 650 MG PO (03:16)
[2025-02-16 03:40] LABS: Hematocrit 36.9 % (37.0-47.0); Hemoglobin 12.6 g/dL (12.0-16.0); Mean Corp Hgb Conc. 34.1 g/dL (33.0-37.0); Mean Corpuscular Volume 86.8 fL (81.0-99.0); Platelet Count 231 10^3/uL (130-400); Red Cell Dist. Width 15.2 % (11.5-14.5)
[2025-02-16 04:21] LABS: ALT (SGPT) 44 U/L (0-35); AST (SGOT) 163 U/L (14-36); Albumin 3.6 g/dl (3.5-5.0); Alkaline Phosphatase 47 U/L (38-126); Blood Urea Nitrogen 12 mg/dl (7-17); Calcium 8.6 mg/dl (8.4-10.2); Carbon Dioxide 28 mmol/L (22-30); Chloride 105 mmol/L (98-107); Estimated Creatinine Clearance 107 ml/min; Glucose 83 mg/dl (70-99); Potassium 4.1 mmol/L (3.5-5.1); Sodium 137 mmol/L (135-145); Total Protein 6.9 g/dl (6.3-8.2); eGFR > 60.00
[2025-02-16] MEDS: LOW STRENGTH ASPIRIN 81 MG PO (08:09)
[2025-02-16 08:10] VITALS: BP 100/63
[2025-02-16] MEDS: BRILINTA 90 MG PO (08:10)
[2025-02-16] MEDS: LOPRESSOR 12.5 MG PO (08:10)
[2025-02-16 08:12] VITALS: BP 104/75
--- NOTE | 2025-02-16 08:18 | W.PN.HOSP.TC ---
Addendum entered and electronically signed by Daniella Das MD 02/16/25 10:32:
d/w Card Dr Rashid.
Add lisinopril 2.5 mg daily.
Card made aware of current elevated LFT (improving), and would still like to start statin (Crestor 20 mg)- e-sent to pharmacy.
updated RN
Original Note:
Today's Communication/Plan
-
DC if cleared by card
Assessment / Plan
Assessment / Plan
HPI: 59 y/o F without significant past medical history, presented with dry cough, sore throat, weakness, nausea and vomiting, ongoing for 2 days.
She denied to fever, chills, SOB, chest pain, etc.
No recent sick contact exposure or travel.
A/P:
# Elevated troponin due to NSTEMI
troponin peaked to 90, then trended down to 41
s/p Cardiac cath 02/14: Successful PCI of mid RCA stenosis with 2 overlapping stents,
Cont DAPT ASA and Brilinta
Echo largely unrevealin. Normal LV size and function. Inferior and inferoseptal hypo-/akinesis. 2. LVEF is 55-60% by visual estimation. 3. Normal RV size and function.
LDL at 84, would avoid statin currently in setting of elevated LFT which is improving
# COVID infection, without hypoxia
COVID-positive, flu negative
procalcitonin negative, Chest x-ray NAD
Continue COVID isolation protocol
# Elevated LFT, likely reactive
Improving
Continue to trend outpt
# Leukocytosis, suspect reactive and due to COVID, resolved
Continue to monitor
# Obesity, BMI 33
Patient on Zepbound outpatient
DVT ppx: Lovenox SQ
FC
DW RN
Anticipated Discharge: Today
Subjective/Interval History
-
Date of Service: February 16, 2025
Objective Data
-
Labs:
Laboratory Results
02/16/25
03:08
WBC 9.3
Hgb 12.6
Hct 36.9 L
Plt Count 231
Sodium 137
Potassium 4.1
Chloride 105
Carbon Dioxide 28
BUN 12
Creatinine 0.6
Glucose 83
Calcium 8.6
Total Bilirubin 0.8
AST 163 H
ALT 44 H
Alkaline Phosphatase 47
Vital Signs:
Vital Signs
Temp Pulse Resp BP Pulse Ox
37.1 C 69 14 104/75 98
02/16/25 03:09 02/16/25 08:10 02/16/25 03:09 02/16/25 08:10 02/16/25 03:09
I&O
02/15/25 02/16/25 02/17/25
06:59 06:59 06:59
Intake Total 480 / 480 480 / 480
Balance 480 / 480 480 / 480
Review of Systems
-
History Source: Patient
All other systems: Reviewed and negative
Physical Exam
-
General: Well Developed, Well Nourished, No Apparent Distress, Comfortable and Conversant; Negative Respiratory Distress
HEENT: Normocephalic, Atraumatic, Nose Appears Normal and Ears Appear Normal; Negative Oxygen
Respiratory: Clear to Auscultation and Non Labored Respirations; Negative Accessory Resp Muscle Use
Cardiac: Regular Rhythm and S1/S2
GI: Soft, Nontender, Nondistended and Normal Bowel Sounds
Skin: Warm and Dry
Neuro: Awake, Alert, Oriented and AO x 3
Psych: Calm and Intact Judgement/Insight
Data Reviewed
-
Diagnostic Radiology: Report Reviewed by me
Labs: Labs Reviewed by me
--- NOTE | 2025-02-16 09:41 | W.PN.CD ---
Today's Communication / Plan
-
doing well post PCI
start statin, labs in 1 week to ensure LFTs stable
Impression / Plan
-
I/P: 59F with obesity, former smoking, and no other significant past medical history who presented with weakness, abnormal ECG, and NSTEMI. Now s/p successful PCI to RCA 02/14/25.
NSTEMI/CAD:
-peak trop 90
-cardiac cath 02/14/25: Successful percutaneous coronary artery intervention of a 99% highly thrombotic mid RCA stenosis (lesion type C, CARMINE I flow) with 2 overlapping 4.0 x 22 and 4.0 x 12 mm Medtronic [place] frontier drug-eluting stent, postdilated
using IVUS guidance with a 4.0 mm NC balloon at high pressures with an excellent angiographic and IVUS based result. Elevated right and left-sided filling pressures with normal cardiac output.
-Continue ASA and Brilinta and we discussed the importance of these medications
-LFTs improving, will start statin today
-continue BB. Will not add ACEI/ARB yet since BP's on low end
-needs another 24 hours monitoring s/p [place]
-she is feeling well and cath site is stable. Eating and ambulating without difficulty.
Covid-19, acute, per primary service
Obesity, BMI 33, on GLP1
Physical Exam
Vital Signs/Labs
Vital Signs
Temp Pulse Resp BP Pulse Ox
36.8 C 71 14 104/75 98
02/16/25 08:50 02/16/25 08:12 02/16/25 03:09 02/16/25 08:12 02/16/25 03:09
02/15/25 02/16/25 02/17/25
06:59 06:59 06:59
Actual Weight 88.2 kg 87.2 kg
02/16/25 03:08
02/16/25 03:08
PT 15.2 Sec (11.4-14.6) H 02/14/25 10:18
INR 1.17 02/14/25 10:18
APTT 30.6 Sec (23.4-35.0) 02/14/25 22:21
Triglycerides 85 mg/dl (10-149) 02/15/25 04:22
LDL Cholesterol, Calc 84 mg/dl 02/15/25 04:22
VLDL Cholesterol, Calc 17 mg/dl (0-30) 02/15/25 04:22
HDL Cholesterol 44 mg/dl 02/15/25 04:22
TSH 0.58 uIU/ml (0.47-4.68) 02/14/25 09:21
LAB Results
02/14/25 02/14/25 02/14/25
10:18 13:00 13:49
Troponin I 29.700 H* Cancelled 44.000 H* D
02/14/25 02/14/25 02/15/25
18:04 22:21 00:00
Troponin I 90.300 H* D 69.400 H* Cancelled
02/15/25
04:22
Troponin I 41.200 H* D
Physical Exam
Constitutional: Comfortable
Cardiovascular: Rhythm & rate is regular
Respiratory: Respiratory effort normal
Neuro/Psych: AO x 3
Data Reviewed
-
Date of Service: February 16, 2025
Medical Decision Making: Reviewed Test Results
Labs: Labs Reviewed by me
[2025-02-16 10:04] VITALS: BP 120/76
[2025-02-16] MEDS: CRESTOR 20 MG PO (10:04)
[2025-02-16] MEDS: ZESTRIL 5 MG PO (10:04)
[2025-02-16 10:55] VITALS: BP 113/80
--- NOTE | 2025-02-16 12:42 | PTCARENOTE ---
Patient cleared for discharge after [address] Peguero. VSS, offers no complaints and anxious to go home. Reviewed discharge instructions, activity restrictions, new medications and follow up appointments and she states her understanding. Patient
discharged home with her .
--- NOTE | 2025-02-16 13:16 | W.DCSUMMARY ---
Discharge Summary
Discharge Data
Date of Admission: 02/14/25
Date of Discharge: 02/16/25
Total time spent discharging patient (in min): 40
-
Pending Results: No
Hospital Course
Principal Diagnosis:
Elevated troponin due to NSTEMI
COVID infection, without hypoxia.
Elevated LFT, likely reactive, and improving.
Chronic Diagnoses:�
Obesity, BMI 33. Patient on Zepbound outpatient
Consultations:�
Cardiology
Procedures:�
s/p Cardiac cath 02/14: Successful PCI of mid RCA stenosis with 2 overlapping stents
Clinical course:�
This is a 59-year-old female without significant past medical history, presented with dry cough, sore throat, weakness, nausea and vomiting, ongoing for 2 days.
She was noted to have significantly elevated troponin (at 29) on admission.
Problem 1:
Elevated troponin due to NSTEMI
troponin peaked to 90, then trended down to 41.
She underwent cardiac cath on 02/14, and had successful PCI of mid RCA stenosis with 2 overlapping stents.
She has been informed to continue DAPT ASA and Brilinta going forward per cardiology.
Her echo was largely unrevealing, noted: 1. Normal LV size and function. Inferior and inferoseptal hypo-/akinesis. 2. LVEF is 55-60% by visual estimation. 3. Normal RV size and function.
Her LDL was at 84, and given her LFT has improved, she was started with Crestor 20 mg.
Problem 2:
COVID infection, without hypoxia.
Her procalcitonin was negative, and Chest x-ray NAD.
She has been informed to continue COVID isolation protocol for a total of 10 days.
Problem 3:
Elevated LFT, likely reactive, and improving.
She can check repeat LFT outpatient with result to her PCP.
As for the rest of her medical problems, they were stable during her hospital stay.
Discharge Plan
-
Patient Disposition: Home (Routine Discharge)
Discharge Diagnosis/Procedures: Angioplasty with thrombectomy and stent to RCA;
elevated liver enzymes (likely reactive)
Condition: Good
Diet: As tolerated, Low Fat and Low Cholesterol
Activity: As tolerated
Driving Restrictions: As prior to admission
Blood Work: CMP in 1 week, result to PCP
Other Services: Cardiac Rehab
Activity Restrictions/Additional Instructions:
Continue COVID isolation, total 10 days
Phase II Cardiac Rehab?Intensive Cardiac Rehab (as able, Discuss with insurance company):
[facility]: [phone]
[facility]: [phone]
Stand Alone Forms: DC Instructions- Cath/EP Lab
Referrals:
Will Edgar DO [Family Provider, Internal Medicine] - in less than 1 week
Nevaeh Stevenson CRNP [Specified Professional Personl, Cardiology] - 03/10/25 10:40 am
Additional Discharge Medication Instructions: Continue aspirin for life. Continue Brillinta for 12 months.
You were started with Toprol and lisinopril, continue going forward.
You were started with statin Crestor. Check repeat LFT result outpatient
Prescriptions:
New
metoprolol tartrate 25 mg Tablet
12.5 mg PO BID Qty: 60 0RF
aspirin 81 mg Tablet,Chewable
81 mg PO DAILY Qty: 30 0RF
ticagrelor 90 mg Tablet
90 mg PO BID Qty: 60 0RF
(DME) CMP
See Rx Instructions .Route .MEDSUPPLY Qty: 1 0RF
Rx Instructions:
02/20/2025 - 02/24/2025, result to PCP
# elevated LFT
lisinopril 2.5 mg tablet
2.5 mg PO DAILY Qty: 30 0RF
rosuvastatin 20 mg Tablet
20 mg PO QPM Qty: 30 0RF
Continued
omega 0-ojb-[id number]-fish oil [Fish Oil] 1,000 (120-180) mg Capsule
1 cap PO DAILY
Brainstrong Memory Support 120 mg- 110 mg Tablet
1 tab PO DAILY
Zepbound 5 mg/0.5 mL Pen Injector
5 mg SC NELSON@1900
Nerve Health 12 mg-17 mg- 24 mcg-300 mg Tablet
1 tab PO DAILY
Discharge Orders:
Discharge Patient (As Directed); Ordered 02/16/25
Ordered By: Daniella Das
Discharge Date and Time
Discharge Date/Time: 02/16/25 12:43
Print Language: CHINESE
== END 2025-02-16 12:43 | disposition home or self-care (01) | DRG 321 ==
LOC: IVU 12:33
PROVIDERS: Internal Medicine Interventional Cardiology; Nurse Practitioner Family; ADMITTING PHYSICIAN Internal Medicine; CONSULT PHYSICIAN Internal Medicine Cardiovascular Disease; EMERGENCY PHYSICIAN Emergency Medicine; FAMILY PHYSICIAN Internal Medicine
PROC: B2111ZZ Fluoroscopy of Multiple Coronary Arteries using Low Osmolar Contrast (ICD-10-PCS; 2025-02-14)
PROC: 027035Z Dilation of Coronary Artery, One Artery with Two Drug-eluting Intraluminal Devices, Percutaneous Approach (ICD-10-PCS; 2025-02-14)
PROC: 4A023N7 Measurement of Cardiac Sampling and Pressure, Left Heart, Percutaneous Approach (ICD-10-PCS; 2025-02-14)
PROC: B240ZZ3 Ultrasonography of Single Coronary Artery, Intravascular (ICD-10-PCS; 2025-02-14)
DX: I21.4 Non-ST elevation (NSTEMI) myocardial infarction (principal); U07.1 COVID-19; E66.01 Morbid (severe) obesity due to excess calories; I25.10 Atherosclerotic heart disease of native coronary artery without angina pectoris; E78.5 Hyperlipidemia, unspecified; Z87.891 Personal history of nicotine dependence; Z68.33 Body mass index [BMI] 33.0-33.9, adult; Z79.85 Long-term (current) use of injectable non-insulin antidiabetic drugs
CPT/HCPCS: 71046; 80053; 80061; 83036; 83605; 83690; 83721; 84145; 84443; 84484; 85025; 85027; 85347; 85610; 85730; 87502; 87811; 92978; 93005; 93306; 93460; 96361; 96365; 96375; 96376; 99152; 99153; 99291; C1725; C1753; C1757; C1769; C1874; C1894; C9600; J1327; Q9967

== ENCOUNTER → 2025-03-24 14:34 | Outpatient (REF) | payer OTHER, SELFPAY | LOC: WDC 14:34 | PROVIDERS: ATTENDING PHYSICIAN Obstetrics & Gynecology Gynecology; FAMILY PHYSICIAN Internal Medicine | DX: Z12.31 Encounter for screening mammogram for malignant neoplasm of breast (principal) | CPT/HCPCS: 77063; 77067 ==